=== PATIENT | female | born 1995 | race African-American/Black ===

== ENCOUNTER 2021-02-08 01:25 | Emergency (ER) | payer SELFPAY ==
[~2021-02-08] VITALS: Ht 175.3 cm; Wt 72.0 kg
[2021-02-08] MEDS ORDERED: IBUPROFEN 400MG TABLET PO ONE (02:30)
[2021-02-08] MEDS ORDERED: ACETAMINOPHEN 325MG TABLET PO ONE (02:30)
[2021-02-08 02:45] VITALS: BP 147/92
== END 2021-02-08 02:54 | disposition home or self-care (01) ==
LOC: ER 01:25
DX: M79.672 Pain in left foot (principal)
CPT/HCPCS: 99282